=== PATIENT | female | born 1955 | race Caucasian/White ===

== ENCOUNTER 2016-04-22 08:20 | Emergency (ER) | payer BC ==
[~2016-04-22] VITALS: Ht 165.1 cm; Wt 113.0 kg
[~2016-04-22 08:20] MED LIST: COLACE100 MG PO; ENDOCET 5-3251 EACH PO; FEOSOL325 MG PO; MOTRIN800 MG PO; NAPROXEN500 MG PO; PREDNISONE20 MG PO; Zestoretic,Prinzide PO
[2016-04-22] MEDS ORDERED: VENTOLIN HFA18 GM IH (09:47)
[2016-04-22] MEDS ORDERED: PREDNISONE20 MG PO (09:53)
[2016-04-22] MEDS ORDERED: LISINOPRIL-HCT1 EACH PO (09:56)
[2016-04-22 10:32] VITALS: BP 157/94
== END 2016-04-22 10:33 | disposition home or self-care (01) ==
LOC: EME 08:20
DX: J06.9 Acute upper respiratory infection, unspecified (principal); I10 Essential (primary) hypertension; Z87.891 Personal history of nicotine dependence
CPT/HCPCS: 94640; 99281; 99283; J7512

== ENCOUNTER 2017-01-06 19:34 | Emergency (ER) | payer BC ==
[~2017-01-06] VITALS: Ht 162.6 cm; Wt 111.3 kg
[~2017-01-06 19:34] MED LIST changes: +LISINOPRIL-HCT1 EACH PO; +VENTOLIN HFA18 GM IH
[2017-01-06 20:37] LABS: HEMATOCRIT 42.2 % (36.0-46.0); MCH 28.1 PG (29.0-34.0); MCHC 33.4 G/DL (30.0-36.0); MCV 84.2 FL (83-99); PLATELET COUNT 268 K/uL (156-360); RBC DIS.WIDTH-CV 12.6 % (11.8-14.6); RBC DIS.WIDTH-SD 38.8 % (39-53); RED BLOOD COUNT 5.01 M/uL (3.80-5.20); WHITE BLOOD COUNT 9.5 K/uL (4.1-10.2)
[2017-01-06 20:45] LABS: CHLORIDE 101 mEq/L (99-109); POTASSIUM 3.7 mEq/L (3.7-5.4); SODIUM 138 mEq/L (136-147)
[2017-01-06 20:47] LABS: GLUCOSE 115 mg/dL (70-99)
[2017-01-06 20:48] LABS: ANION GAP 13 MEQ/L (2-14)
[2017-01-06 20:51] LABS: GFR ESTIMATE (CALCULATED) > 59 mL/min/
[2017-01-06 20:52] LABS: UREA NITROGEN (BUN) 10 mg/dL (9-23)
[2017-01-06 20:57] LABS: TROP-I INTERPRETATION NEGATIVE; TROPONIN-I < 0.01 ng/mL (0.0-0.30)
[2017-01-06] MEDS ORDERED: PREDNISONE10 M1 PO (21:03)
[2017-01-06] MEDS ORDERED: VENTOLIN HFA18 GM IH (21:03)
[2017-01-06 21:10] VITALS: BP 170/83
== END 2017-01-06 21:22 | disposition home or self-care (01) ==
LOC: EME 19:34
DX: R06.02 Shortness of breath (principal); I10 Essential (primary) hypertension; E78.5 Hyperlipidemia, unspecified; Z87.891 Personal history of nicotine dependence; Z87.01 Personal history of pneumonia (recurrent)
CPT/HCPCS: 71020; 80048; 84484; 85027; 93005; 99281; 99284

== ENCOUNTER 2017-05-05 19:15 | Emergency (ER) | payer BC ==
[~2017-05-05] VITALS: Ht 162.6 cm; Wt 102.5 kg
[~2017-05-05 19:15] MED LIST changes: +PREDNISONE10 M1 PO
[2017-05-05 19:45] LABS: HEMATOCRIT 37.9 % (36.0-46.0); HEMOGLOBIN 12.6 G/DL (11.9-15.5); MCH 28.1 PG (29.0-34.0); MCHC 33.2 G/DL (30.0-36.0); MCV 84.4 FL (83-99); PLATELET COUNT 269 K/uL (156-360); RBC DIS.WIDTH-CV 13.4 % (11.8-14.6); RBC DIS.WIDTH-SD 41.3 % (39-53); RED BLOOD COUNT 4.49 M/uL (3.80-5.20); WHITE BLOOD COUNT 10.4 K/uL (4.1-10.2)
[2017-05-05 19:59] LABS: CHLORIDE 104 mEq/L (99-109); POTASSIUM 3.4 mEq/L (3.7-5.4); SODIUM 140 mEq/L (136-147)
[2017-05-05 20:01] LABS: GLUCOSE 96 mg/dL (70-99)
[2017-05-05 20:04] LABS: CREATININE 0.6 mg/dL (0.6-1.3); GFR ESTIMATE (CALCULATED) > 59 mL/min/
[2017-05-05 20:05] LABS: UREA NITROGEN (BUN) 10 mg/dL (9-23)
[2017-05-05] MEDS ORDERED: PREDNISONE20 MG PO (21:37)
[2017-05-05 21:58] VITALS: BP 137/66
[2017-05-06] MEDS ORDERED: PROVENTIL,2.5 MG/3 M IH (16:33)
[2017-05-06] MEDS ORDERED: TAMIFLU75 MG PO (16:33)
== END 2017-05-05 21:58 | disposition home or self-care (01) ==
LOC: EME 19:15
PROVIDERS: Physician Assistant
DX: J10.1 Influenza due to other identified influenza virus with other respiratory manifestations (principal); J45.901 Unspecified asthma with (acute) exacerbation; I10 Essential (primary) hypertension; Z87.891 Personal history of nicotine dependence
CPT/HCPCS: 71046; 80048; 85027; 87502; 94640; 99281; 99284; J2930

== ENCOUNTER 2017-05-06 14:50 | Emergency (ER) | payer BC ==
[~2017-05-06] VITALS: Ht 162.6 cm; Wt 101.9 kg
[2017-05-06 15:53] LABS: HEMATOCRIT 40.1 % (36.0-46.0); HEMOGLOBIN 13.5 G/DL (11.9-15.5); MCH 28.6 PG (29.0-34.0); MCHC 33.7 G/DL (30.0-36.0); PLATELET COUNT 269 K/uL (156-360); RBC DIS.WIDTH-CV 13.6 % (11.8-14.6); RBC DIS.WIDTH-SD 42.4 % (39-53); RED BLOOD COUNT 4.72 M/uL (3.80-5.20); WHITE BLOOD COUNT 14.8 K/uL (4.1-10.2)
[2017-05-06 16:00] LABS: CHLORIDE 103 mEq/L (99-109)
[2017-05-06 16:01] LABS: POTASSIUM 3.6 mEq/L (3.7-5.4); SODIUM 141 mEq/L (136-147)
[2017-05-06 16:02] LABS: GLUCOSE 114 mg/dL (70-99)
[2017-05-06 16:06] LABS: CREATININE 0.6 mg/dL (0.6-1.3); GFR ESTIMATE (CALCULATED) > 59 mL/min/
[2017-05-06 16:07] LABS: UREA NITROGEN (BUN) 10 mg/dL (9-23)
[2017-05-06] MEDS ORDERED: PROVENTIL,2.5 MG/3 M IH (16:33)
[2017-05-06] MEDS ORDERED: TAMIFLU75 MG PO (16:33)
[2017-05-06 16:56] VITALS: BP 158/65
== END 2017-05-06 17:02 | disposition home or self-care (01) ==
LOC: EME 14:50
PROVIDERS: Nurse Practitioner Family
DX: J10.1 Influenza due to other identified influenza virus with other respiratory manifestations (principal); J45.901 Unspecified asthma with (acute) exacerbation; I10 Essential (primary) hypertension; Z87.891 Personal history of nicotine dependence
CPT/HCPCS: 80048; 85027; 94640; 99281; 99284

== ENCOUNTER 2017-05-09 18:06 | Inpatient (IN) | payer BC ==
[~2017-05-09] VITALS: Ht 162.6 cm; Wt 100.7 kg
[~2017-05-09 18:06] MED LIST changes: +PROVENTIL,2.5 MG/3 M IH; +TAMIFLU75 MG PO
[2017-05-09 21:50] LABS: BASOPHIL (%) 0.2 % (0-1); EOSINOPHIL (%) 0 % (0-5); HEMATOCRIT 44.4 % (36.0-46.0); HEMOGLOBIN 14.7 G/DL (11.9-15.5); IMMATURE GRANULOCYTE (%) 0.8 % (0.0-0.7); LYMPHOCYTE (%) 11.1 % (15-42); MCH 28.1 PG (29.0-34.0); MCHC 33.1 G/DL (30.0-36.0); MCV 84.7 FL (83-99); MONOCYTE (%) 4.9 % (3-12); MONOCYTE COUNT 0.4 K/uL (0-0.8); NEUTROPHIL COUNT 7.2 K/uL (1.8-6.4); PLATELET COUNT 265 K/uL (156-360); RBC DIS.WIDTH-CV 13.8 % (11.8-14.6); RBC DIS.WIDTH-SD 42.7 % (39-53); RED BLOOD COUNT 5.24 M/uL (3.80-5.20); WHITE BLOOD COUNT 8.7 K/uL (4.1-10.2)
[2017-05-09 22:00] LABS: CHLORIDE 100 mEq/L (99-109); POTASSIUM 4.1 mEq/L (3.7-5.4); SODIUM 141 mEq/L (136-147)
[2017-05-09 22:02] LABS: GLUCOSE 123 mg/dL (70-99)
[2017-05-09 22:06] LABS: CREATININE 0.7 mg/dL (0.6-1.3); GFR ESTIMATE (CALCULATED) > 59 mL/min/
[2017-05-09 22:07] LABS: UREA NITROGEN (BUN) 17 mg/dL (9-23)
[2017-05-10] MEDS ORDERED: AMOX TR-K CLV1 EAC4 PO (00:25)
[2017-05-10] MEDS ORDERED: TRAZODONE HCL50 MG PO (00:25)
[2017-05-10] MEDS ORDERED: ADVAIR 250/501 DISK IH (00:26)
[2017-05-10] MEDS ORDERED: PROAIR HFA8.5 GM IH (00:27)
[2017-05-10] MEDS ORDERED: ALBUTEROL2.5 MG/3 M IH (00:28)
[2017-05-10] MEDS ORDERED: CHOLESTYRAMINE378 GM PO (00:32)
[2017-05-10] MEDS ORDERED: WOMEN'S 50 PLU1 EACH PO (00:33)
[2017-05-10] MEDS ORDERED: ADVIL,NUPRIN,M200 MG PO (00:35)
[2017-05-10 04:26] VITALS: BP 172/84
[2017-05-10 07:37] VITALS: BP 167/82
[2017-05-10 11:36] VITALS: BP 184/88
[2017-05-10 15:29] VITALS: BP 140/85
[2017-05-10 19:00] VITALS: BP 150/82
[2017-05-10 23:06] VITALS: BP 161/76
[2017-05-11 03:54] VITALS: BP 143/84
[2017-05-11 05:50] LABS: HEMATOCRIT 41.6 % (36.0-46.0); HEMOGLOBIN 13.7 G/DL (11.9-15.5); MCH 27.9 PG (29.0-34.0); MCHC 32.9 G/DL (30.0-36.0); MCV 84.7 FL (83-99); PLATELET COUNT 263 K/uL (156-360); RBC DIS.WIDTH-CV 13.8 % (11.8-14.6); RBC DIS.WIDTH-SD 42.8 % (39-53); RED BLOOD COUNT 4.91 M/uL (3.80-5.20); WHITE BLOOD COUNT 13.1 K/uL (4.1-10.2)
[2017-05-11 06:22] LABS: CHLORIDE 100 MEQ/L (99-109); CREATININE 0.5 MG/DL (0.6-1.3); GFR ESTIMATE (CALCULATED) > 59 mL/min/; GLUCOSE 154 mg/dL (70-99); POTASSIUM 3.9 MEQ/L (3.7-5.4); SODIUM 137 MEQ/L (136-147); UREA NITROGEN (BUN) 17 mg/dL (9-23)
[2017-05-11 07:45] VITALS: BP 168/88
[2017-05-11 11:01] VITALS: BP 177/85
[2017-05-11 15:15] VITALS: BP 162/84
[2017-05-11 19:20] VITALS: BP 171/93
[2017-05-12 00:35] VITALS: BP 162/81
[2017-05-12 04:57] VITALS: BP 168/83
[2017-05-12 04:59] VITALS: BP 161/76
[2017-05-12 07:42] VITALS: BP 153/81
[2017-05-12 11:05] VITALS: BP 145/86
[2017-05-12] MEDS ORDERED: PREDNISONE10 MG PO (13:13)
== END 2017-05-12 16:14 | disposition home or self-care (01) | DRG 193 ==
LOC: EME 18:06 → EDOF 05-10 03:21 → ENRESERV 05-10 03:24 → 5WEST 05-10 04:12 → 5SOUTH 05-10 10:30 → 5WEST 05-10 10:30 → ENRESERV 05-10 10:32 → 5WEST 05-12 16:14
PROVIDERS: Emergency Medicine; Hospitalist
DX: J10.1 Influenza due to other identified influenza virus with other respiratory manifestations (principal); J96.01 Acute respiratory failure with hypoxia; J45.901 Unspecified asthma with (acute) exacerbation; J20.9 Acute bronchitis, unspecified; I10 Essential (primary) hypertension; K44.9 Diaphragmatic hernia without obstruction or gangrene; D50.9 Iron deficiency anemia, unspecified; E66.01 Morbid (severe) obesity due to excess calories; Z68.38 Body mass index [BMI] 38.0-38.9, adult; Z90.710 Acquired absence of both cervix and uterus; Z87.891 Personal history of nicotine dependence; Z82.49 Family history of ischemic heart disease and other diseases of the circulatory system; Z80.3 Family history of malignant neoplasm of breast; Z80.0 Family history of malignant neoplasm of digestive organs
CPT/HCPCS: 71046; 71250; 80048; 83605; 85025; 85027; 87040; 94010; 94640; 94640 76; 94667; 94668; 94799; 99202; 99281; 99285; J1100; J1644; J2930; J7030